=== PATIENT | female | born 1970 | race Caucasian/White ===

== ENCOUNTER 2022-06-13 11:33 | Outpatient (CLI) | payer BC | END 2022-06-13 11:34 | disposition home or self-care (01) | LOC: CSHMAMMO 11:33 | PROVIDERS: ATTEND Family Medicine | DX: Z12.31 Encounter for screening mammogram for malignant neoplasm of breast (principal); Z80.3 Family history of malignant neoplasm of breast | CPT/HCPCS: 77063; 77067 ==

== ENCOUNTER 2024-02-13 12:25 | Outpatient (CLI) | payer BC | END 2024-02-13 12:26 | disposition home or self-care (01) | LOC: CSHMAMMO 12:25 | PROVIDERS: ATTEND Family Medicine | DX: Z12.31 Encounter for screening mammogram for malignant neoplasm of breast (principal); Z80.3 Family history of malignant neoplasm of breast | CPT/HCPCS: 77063; 77067 ==

== ENCOUNTER 2024-10-08 15:04 | Outpatient (CLI) | payer BC | END 2024-10-08 15:05 | disposition home or self-care (01) | LOC: CSHULT 15:04 | PROVIDERS: ATTEND Family Medicine | DX: R10.2 Pelvic and perineal pain (principal) | CPT/HCPCS: 76856 ==

== ENCOUNTER 2024-10-21 07:46 | Outpatient (CLI) | payer BC ==
[2024-10-21] MEDS ORDERED: Iopamidol 300 61% 100 ML VIAL FS ONE (11:04)
== END 2024-10-21 07:47 | disposition home or self-care (01) ==
LOC: CSHCT 07:46
PROVIDERS: ATTEND Physician Assistant Medical
DX: R10.32 Left lower quadrant pain (principal); Z80.41 Family history of malignant neoplasm of ovary; Z87.19 Personal history of other diseases of the digestive system; R00.2 Palpitations
CPT/HCPCS: 74177